=== PATIENT | male | born 1975 | race Caucasian/White ===

== ENCOUNTER 2022-02-10 09:03 | Outpatient (CLI) | payer OTHER, SELFPAY ==
[2022-02-10 16:07] LABS: Albumin* 4.9 g/dL (3.3-5.0); Chloride* 101 mmol/L (96-114)
[2022-02-10 16:08] LABS: Potassium* 4.7 mmol/L (3.6-5.1); Sodium* 136 mmol/L (135-149)
[2022-02-10 16:10] LABS: Aspartate Amino Transferase* 73 U/L (12-35); Bilirubin Total* 0.9 mg/dL (0.1-1.5); Blood Urea Nitrogen* 12 mg/dL (5-24); Carbon Dioxide* 23 mmol/L (20-32); Cholesterol* 216 mg/dL (90-199); Creatinine* 0.7 mg/dL (0.5-1.5); Estimated Glomerular Filt Rate 115 ml/min; Glucose* 133 mg/dL (60-115); Total Protein* 7.6 g/dL (6.0-8.3)
[2022-02-10 16:11] LABS: Alanine Aminotransferase* 79 U/L (4-50); Alkaline Phosphatase* 73 U/L (40-150); Calcium* 9.5 mg/dL (8.4-10.6); HDL Cholesterol* 52 mg/dL (>=40); LDL Cholesterol Calculated 134 mg/dL (<100); Triglycerides* 151 mg/dL (40-149)
== END 2022-02-10 09:04 | disposition home or self-care (01) ==
PROVIDERS: PCP Family Medicine; Visit Provider Family Medicine
DX: Z00.00 Encounter for general adult medical examination without abnormal findings (principal); E66.9 Obesity, unspecified; I10 Essential (primary) hypertension; M10.9 Gout, unspecified; Z13.6 Encounter for screening for cardiovascular disorders
CPT/HCPCS: 80053; 80061

== ENCOUNTER 2022-03-21 10:13 | Outpatient (CLI) | payer OTHER, SELFPAY | END 2022-03-21 10:14 | disposition home or self-care (01) | LOC: OP CLINIC 10:15 | PROVIDERS: PCP Family Medicine; Visit Provider Surgery | DX: Z12.11 Encounter for screening for malignant neoplasm of colon (principal); K63.5 Polyp of colon; Z83.71 Family history of colonic polyps | CPT/HCPCS: 45385; 88305; 99153; J2250; J3010 ==

== ENCOUNTER 2023-07-17 10:11 | Outpatient (CLI) | payer OTHER, SELFPAY | END 2023-07-17 10:12 | disposition home or self-care (01) | PROVIDERS: PCP Family Medicine; Visit Provider Family Medicine | DX: E78.00 Pure hypercholesterolemia, unspecified (principal); I10 Essential (primary) hypertension; E11.9 Type 2 diabetes mellitus without complications; Z79.85 Long-term (current) use of injectable non-insulin antidiabetic drugs | CPT/HCPCS: 80053; 80061; 82043; 82570 ==